=== PATIENT | female | born 1955 | race Caucasian/White ===

== ENCOUNTER 2017-07-16 14:12 | Emergency (ER) | payer BC, OTHER ==
[~2017-07-16] VITALS: Ht 170.2 cm; Wt 102.1 kg
[~2017-07-16 14:12] MED LIST: 5-Htp100 MG PO; ABAT250V; ALBU90OI6 INH; ATEN25; ATEN50; Adipex-P37.5 MG PO; CYCL10 PO; ESTR2; ESTR2 PO; FLUSAL1005 IH; GLIM2; GLIMEPIRIDE PO; GLYMET5 PO; GUAI120S1 PO; LEVA1.25 INH; LISI5 PO; LORA10ER PO; METF500; METF500 PO; METFORMIN PO; MONT10T PO; MULVITMINF; NAPR550 PO; OXYACE7.5T PO; PRED10 PO; PROC5 PO; Percocet 5-3251 EACH PO; Prednisone20 MG PO; Prednisone50 MG PO; QVAR7.3 G1 IH; SERT25; SERT50; THEO200ERA PO; THEO300ERA; THEO300ERB; ZALE10 PO; ZALE5; ZALE5 PO
[2017-07-16] MEDS ORDERED: INSDET100 SC (14:43)
[2017-07-16 14:44] LABS: BASOPHILS ABSOLUTE AUTO 0.04 K/mm3 (0.00-0.23); BASOPHILS PERCENT AUTO 1 % (0-2); EOSINOPHILS ABSOLUTE AUTO 0.17 K/mm3 (0.00-0.68); EOSINOPHILS PERCENT AUTO 3 % (0-6); Hematocrit 43.6 % (33.0-51.0); Hemoglobin 14.4 g/dL (11.5-16.0); IMMATURE GRAN ABSOLUTE AUTO 0.02 K/mm3 (0.00-0.10); IMMATURE GRAN PERCENT AUTO 0 % (0-1); LYMPHOCYTES ABSOLUTE AUTO 2.59 K/mm3 (0.84-5.20); LYMPHOCYTES PERCENT AUTO 39 % (21-46); MONOCYTES ABSOLUTE AUTO 0.33 K/mm3 (0.16-1.47); MONOCYTES PERCENT AUTO 5 % (4-13); Mean Corpuscular HGB 28.5 pg (26.0-34.0); Mean Corpuscular Volume 86 fL (80-100); Mean Platelet Volume 10.3 fL (9.1-12.4); NEUTROPHILS ABSOLUTE AUTO 3.56 K/mm3 (1.96-9.15); NEUTROPHILS PERCENT AUTO 53 % (41-73); Platelet Count 339 K/mm3 (150-400); RDW Coefficient Variation 11.9 % (11.7-14.2); RDW Standard Deviation 37.8 fL (35.1-46.3); Red Blood Cell Count 5.05 M/mm3 (3.80-5.20); White Blood Cell Count 6.71 K/mm3 (4.00-11.30)
[2017-07-16 15:07] LABS: Alanine Aminotransfer (ALT/SGP 38 U/L (12-78); Albumin, Blood 3.3 g/dL (3.4-5.0); Albumin/Globulin Ratio 0.7 (0.8-1.8); Alk Phos 112 U/L (50-136); Anion Gap 9 mmol/L (6-16); Aspartate Aminotrans (AST/SGOT 21 U/L (12-37); Bilirubin, Total 0.4 mg/dL (0.1-1.0); Blood Urea Nitrogen 12 mg/dL (8-24); CO2, Blood 24 mmol/L (21-32); Chloride, Blood 103 mmol/L (98-108); Creatinine, Blood 0.57 mg/dL (0.40-1.00); Globulin, Blood 4.5 g/dL (2.2-4.0); Glomerular Filtration Rate >60 (60-); Glucose, Blood 294 mg/dL (70-99); Potassium, Blood 4.3 mmol/L (3.5-5.5); Sodium, Blood 136 mmol/L (136-145); Total Protein, Blood 7.8 g/dL (6.4-8.2); Troponin I <0.015 ng/mL (0.000-0.040)
== END 2017-07-16 16:28 | disposition home or self-care (01) ==
LOC: ER 14:12
PROVIDERS: Internal Medicine
DX: S93.401A Sprain of unspecified ligament of right ankle, initial encounter (principal); J40 Bronchitis, not specified as acute or chronic; E11.9 Type 2 diabetes mellitus without complications; I10 Essential (primary) hypertension; Z88.0 Allergy status to penicillin; Z88.8 Allergy status to other drugs, medicaments and biological substances; Z79.899 Other long term (current) drug therapy; Z79.52 Long term (current) use of systemic steroids; Z79.4 Long term (current) use of insulin; W01.0XXA Fall on same level from slipping, tripping and stumbling without subsequent striking against object, initial encounter
CPT/HCPCS: 36415; 71046; 73590; 73610; 80053; 84484; 85025; 93005; 93010; 94640; 99284; J1817; J7030

== ENCOUNTER 2017-09-11 16:09 | Emergency (ER) | payer BC ==
[~2017-09-11] VITALS: Ht 170.2 cm; Wt 104.3 kg
[~2017-09-11 16:09] MED LIST changes: +INSDET100 SC
[2017-09-11 16:36] LABS: Source, Urine Clean Catch
[2017-09-11 16:38] LABS: BASOPHILS ABSOLUTE AUTO 0.05 K/mm3 (0.00-0.23); BASOPHILS PERCENT AUTO 1 % (0-2); EOSINOPHILS ABSOLUTE AUTO 0.15 K/mm3 (0.00-0.68); EOSINOPHILS PERCENT AUTO 2 % (0-6); Hematocrit 40.3 % (33.0-51.0); Hemoglobin 13.4 g/dL (11.5-16.0); IMMATURE GRAN ABSOLUTE AUTO 0.02 K/mm3 (0.00-0.10); IMMATURE GRAN PERCENT AUTO 0 % (0-1); LYMPHOCYTES ABSOLUTE AUTO 2.48 K/mm3 (0.84-5.20); LYMPHOCYTES PERCENT AUTO 41 % (21-46); MONOCYTES ABSOLUTE AUTO 0.33 K/mm3 (0.16-1.47); MONOCYTES PERCENT AUTO 5 % (4-13); Mean Corpuscular HGB 29.3 pg (26.0-34.0); Mean Corpuscular HGB Conc 33.3 g/dL (31.5-36.5); Mean Corpuscular Volume 88 fL (80-100); Mean Platelet Volume 10.7 fL (9.1-12.4); NEUTROPHILS PERCENT AUTO 51 % (41-73); Platelet Count 329 K/mm3 (150-400); RDW Coefficient Variation 12.1 % (11.7-14.2); RDW Standard Deviation 39.2 fL (35.1-46.3); Red Blood Cell Count 4.57 M/mm3 (3.80-5.20); White Blood Cell Count 6.13 K/mm3 (4.00-11.30)
[2017-09-11 16:41] LABS: Bilirubin, Urine Neg (Neg); Blood, Urine Neg (Neg); Glucose Qualitative, Urine 4+ (Neg); Ketones, Urine Neg (Neg); Leukocyte Esterase, Urine Neg (Neg); Nitrite, Urine Neg (Neg); Protein, Urine Neg (Neg); Specific Gravity, Urine 1.015 (1.003-1.022); Urobilinogen, Urine NORM (Normal)
[2017-09-11 16:48] LABS: Appearance, Urine Clear (Clear); Color, Urine Pale Yellow (P-Yellow)
[2017-09-11 17:10] LABS: Alanine Aminotransfer (ALT/SGP 11 U/L (12-78); Albumin, Blood 3.3 g/dL (3.4-5.0); Albumin/Globulin Ratio 0.9 (0.8-1.8); Alk Phos 94 U/L (50-136); Anion Gap 8 mmol/L (6-16); Aspartate Aminotrans (AST/SGOT 8 U/L (12-37); Bilirubin, Total 0.2 mg/dL (0.1-1.0); Blood Urea Nitrogen 11 mg/dL (8-24); CO2, Blood 26 mmol/L (21-32); Calcium, Blood 8.9 mg/dL (8.5-10.1); Chloride, Blood 101 mmol/L (98-108); Creatinine, Blood 0.69 mg/dL (0.40-1.00); Globulin, Blood 3.8 g/dL (2.2-4.0); Glomerular Filtration Rate >60 (60-); Glucose, Blood 551 mg/dL (70-99); Potassium, Blood 4.2 mmol/L (3.5-5.5); Sodium, Blood 135 mmol/L (136-145); Total Protein, Blood 7.1 g/dL (6.4-8.2)
[2017-09-11] MEDS ORDERED: 5-Htp50 MG PO (17:25)
[2017-09-11 18:24] LABS: Beta-hydroxybutyrate 1.1 mg/dL (0.2-2.8)
== END 2017-09-11 19:05 | disposition home or self-care (01) ==
LOC: ER 16:09
PROVIDERS: Emergency Medicine
DX: E11.65 Type 2 diabetes mellitus with hyperglycemia (principal); J45.909 Unspecified asthma, uncomplicated; I10 Essential (primary) hypertension; Z79.899 Other long term (current) drug therapy; Z79.4 Long term (current) use of insulin
CPT/HCPCS: 36415; 80053; 81003; 82010; 82947; 85025; 96360; 99283; J1815; J7030

== ENCOUNTER 2018-06-26 09:07 | Emergency (ER) | payer BC ==
[~2018-06-26] VITALS: Ht 170.2 cm; Wt 97.5 kg
[~2018-06-26 09:07] MED LIST changes: +5-Htp50 MG PO
[2018-06-26 10:35] LABS: BASOPHILS ABSOLUTE AUTO 0.04 K/mm3 (0.00-0.23); BASOPHILS PERCENT AUTO 0 % (0-2); EOSINOPHILS ABSOLUTE AUTO 0.05 K/mm3 (0.00-0.68); EOSINOPHILS PERCENT AUTO 0 % (0-6); Hematocrit 39.8 % (33.0-51.0); Hemoglobin 13.4 g/dL (11.5-16.0); IMMATURE GRAN ABSOLUTE AUTO 0.07 K/mm3 (0.00-0.10); IMMATURE GRAN PERCENT AUTO 0 % (0-1); LYMPHOCYTES ABSOLUTE AUTO 1.19 K/mm3 (0.84-5.20); LYMPHOCYTES PERCENT AUTO 7 % (21-46); MONOCYTES PERCENT AUTO 6 % (4-13); Mean Corpuscular HGB 28.9 pg (26.0-34.0); Mean Corpuscular HGB Conc 33.7 g/dL (31.5-36.5); Mean Corpuscular Volume 86 fL (80-100); Mean Platelet Volume 10.2 fL (9.1-12.4); NEUTROPHILS ABSOLUTE AUTO 13.95 K/mm3 (1.96-9.15); NEUTROPHILS PERCENT AUTO 86 % (41-73); Platelet Count 355 K/mm3 (150-400); RDW Coefficient Variation 12.3 % (11.7-14.2); RDW Standard Deviation 38.1 fL (35.1-46.3); Red Blood Cell Count 4.63 M/mm3 (3.80-5.20)
[2018-06-26] MEDS ORDERED: ACYC200 (10:38)
[2018-06-26] MEDS ORDERED: [UNRECOGNIZED DRUG - OTHER] PO (10:38)
[2018-06-26] MEDS ORDERED: COMBIVENT RESPIM4 GM INH (10:38)
[2018-06-26] MEDS ORDERED: LEVA.63IS INH (10:39)
[2018-06-26] MEDS ORDERED: (None)15 G1 EXT (10:39)
[2018-06-26] MEDS ORDERED: CHOL10002 (10:39)
[2018-06-26] MEDS ORDERED: ASPI81CH (10:40)
[2018-06-26 11:10] LABS: Alanine Aminotransfer (ALT/SGP 17 U/L (12-78); Albumin, Blood 3.3 g/dL (3.4-5.0); Albumin/Globulin Ratio 0.8 (0.8-1.8); Alk Phos 101 U/L (50-136); Anion Gap 10 mmol/L (6-16); Aspartate Aminotrans (AST/SGOT 8 U/L (12-37); Bilirubin, Total 0.3 mg/dL (0.1-1.0); Blood Urea Nitrogen 11 mg/dL (8-24); Bun/Creatinine Ratio 17.2 (12.0-20.0); CO2, Blood 24 mmol/L (21-32); Calcium, Blood 9.2 mg/dL (8.5-10.1); Chloride, Blood 104 mmol/L (98-108); Creatinine, Blood 0.64 mg/dL (0.40-1.00); Globulin, Blood 3.9 g/dL (2.2-4.0); Glomerular Filtration Rate >60 (60-); Glucose, Blood 246 mg/dL (70-99); Potassium, Blood 4.3 mmol/L (3.5-5.5); Sodium, Blood 138 mmol/L (136-145); Total Protein, Blood 7.2 g/dL (6.4-8.2)
[2018-06-26 12:06] LABS: Source, Urine Clean Catch
[2018-06-26 12:14] LABS: Bilirubin, Urine Neg (Neg); Blood, Urine Neg (Neg); Glucose Qualitative, Urine 2+ (Neg); Ketones, Urine Neg (Neg); Leukocyte Esterase, Urine 1+ (Neg); Nitrite, Urine Neg (Neg); Protein, Urine 1+ (Neg); Urobilinogen, Urine 1+ (Normal)
[2018-06-26 12:28] LABS: Appearance, Urine Clear (Clear); Bacteria Few /hpf; Color, Urine Yellow (P-Yellow); Mucus Light (0-Heavy); Red Blood Cells, Urine Not Seen /hpf (0-2); Squamous Epithelial Cells Few /hpf (Few); White Blood Cells, Urine 0-2 /hpf (0-5)
[2018-06-26] MEDS ORDERED: Norco 5-325 Ta1 EACH PO (13:06)
[2018-06-26] MEDS ORDERED: Macrobid 100 M100 MG PO (13:06)
== END 2018-06-26 13:36 | disposition home or self-care (01) ==
LOC: ER 09:07
PROVIDERS: Emergency Medicine
DX: R10.9 Unspecified abdominal pain (principal); E11.9 Type 2 diabetes mellitus without complications; J45.909 Unspecified asthma, uncomplicated; I10 Essential (primary) hypertension; Z88.0 Allergy status to penicillin; Z88.8 Allergy status to other drugs, medicaments and biological substances; Z79.4 Long term (current) use of insulin; Z79.899 Other long term (current) drug therapy; Z87.891 Personal history of nicotine dependence
CPT/HCPCS: 36415; 74177; 80053; 81001; 85025; 87086; 96361-59; 96374-59; 96375-59; 99284-25; J2405; J3010; J7030; Q9967

== ENCOUNTER 2020-01-18 08:35 | Day surgery (SDC) | payer BC, MEDICARE ==
[~2020-01-18 08:35] MED LIST changes: +(None)15 G1 EXT; +ACYC200; +ASPI81CH; +CHOL10002; +COMBIVENT RESPIM4 GM INH; +LEVA.63IS INH; +Macrobid 100 M100 MG PO; +Norco 5-325 Ta1 EACH PO; +[UNRECOGNIZED DRUG - OTHER] PO
--- NOTE | 2020-01-18 10:45 | NUR ---
DISCHARGE SUMMARY Patient up to Ambulate independently. Gait steady. Discharge instructions reviewed with patient. Patient verbalizes understanding. Copy given to patient to take home. IV DC'D. PT DECLINED WC OUT, DAUGHTER PICKING UP TO TAKE HOME.
== END 2020-01-18 22:38 | disposition home or self-care (01) ==
LOC: CT 08:35 → ORD 08:35 → CT 10:00 → ORD 22:38
DX: I25.10 Atherosclerotic heart disease of native coronary artery without angina pectoris (principal); R06.02 Shortness of breath; I10 Essential (primary) hypertension; E11.9 Type 2 diabetes mellitus without complications; E66.9 Obesity, unspecified; J45.909 Unspecified asthma, uncomplicated; Z88.0 Allergy status to penicillin; Z79.4 Long term (current) use of insulin; Z79.899 Other long term (current) drug therapy; Z87.891 Personal history of nicotine dependence
CPT/HCPCS: 75574; Q9967

== ENCOUNTER 2021-07-22 15:36 | Emergency (ER) | payer MEDICARE ==
[~2021-07-22] VITALS: Ht 170.2 cm; Wt 124.7 kg
[2021-07-22 16:14] LABS: BASOPHILS ABSOLUTE AUTO 0.05 K/mm3 (0.00-0.23); BASOPHILS PERCENT AUTO 0 % (0-2); EOSINOPHILS ABSOLUTE AUTO 0.02 K/mm3 (0.00-0.68); EOSINOPHILS PERCENT AUTO 0 % (0-6); Hematocrit 40.8 % (33.0-51.0); Hemoglobin 13.6 g/dL (11.5-16.0); IMMATURE GRAN ABSOLUTE AUTO 0.05 K/mm3 (0.00-0.10); IMMATURE GRAN PERCENT AUTO 0 % (0-1); LYMPHOCYTES ABSOLUTE AUTO 1.93 K/mm3 (0.84-5.20); LYMPHOCYTES PERCENT AUTO 14 % (21-46); MONOCYTES PERCENT AUTO 4 % (4-13); Mean Corpuscular HGB 28.1 pg (26.0-34.0); Mean Corpuscular HGB Conc 33.3 g/dL (31.5-36.5); Mean Corpuscular Volume 84 fL (80-100); Mean Platelet Volume 10.5 fL (9.1-12.4); NEUTROPHILS PERCENT AUTO 81 % (41-73); Platelet Count 410 K/mm3 (150-400); RDW Coefficient Variation 12.6 % (11.7-14.2); RDW Standard Deviation 38.5 fL (35.1-46.3); Red Blood Cell Count 4.84 M/mm3 (3.80-5.20); White Blood Cell Count 13.65 K/mm3 (4.00-11.30)
[2021-07-22 16:28] LABS: Alanine Aminotransfer (ALT/SGP 14 U/L (12-78); Albumin, Blood 3.5 g/dL (3.4-5.0); Albumin/Globulin Ratio 0.8 (0.8-1.8); Alk Phos 116 U/L (50-136); Anion Gap 8 mmol/L (6-16); Aspartate Aminotrans (AST/SGOT 8 U/L (12-37); Bilirubin, Total 0.5 mg/dL (0.1-1.0); Blood Urea Nitrogen 9 mg/dL (8-24); Bun/Creatinine Ratio 12.9 (12.0-20.0); CO2, Blood 24 mmol/L (21-32); Calcium, Blood 9.7 mg/dL (8.5-10.1); Chloride, Blood 103 mmol/L (98-108); Globulin, Blood 4.6 g/dL (2.2-4.0); Glomerular Filtration Rate >60 (60-); Glucose, Blood 206 mg/dL (70-99); Potassium, Blood 3.5 mmol/L (3.5-5.5); Sodium, Blood 135 mmol/L (136-145); Total Protein, Blood 8.1 g/dL (6.4-8.2)
[2021-07-22 17:29] LABS: Influenza A, PCR NEGATIVE (NEGATIVE); Influenza B, PCR NEGATIVE (NEGATIVE); Resp Syncytial Virus, PCR NEGATIVE (NEGATIVE); SARS-Cov-2 (COVID-19) PCR, MMC NEGATIVE (NEGATIVE)
== END 2021-07-22 20:12 | disposition home or self-care (01) ==
LOC: ER 15:36
PROVIDERS: Physician Assistant
DX: J05.0 Acute obstructive laryngitis [croup] (principal); E11.9 Type 2 diabetes mellitus without complications; J45.909 Unspecified asthma, uncomplicated; I10 Essential (primary) hypertension; Z20.822 Contact with and (suspected) exposure to COVID-19; Z87.891 Personal history of nicotine dependence; Z88.0 Allergy status to penicillin; Z88.8 Allergy status to other drugs, medicaments and biological substances; Z79.899 Other long term (current) drug therapy; Z79.4 Long term (current) use of insulin
CPT/HCPCS: 0241U; 36415; 71046; 80053; 84484; 85025; 93005; 93010; 99284-25; A9270; J1100

== ENCOUNTER → 2022-06-01 | Outpatient (CLI) | payer MEDICARE ==
[2022-06-01 18:24] LABS: Bun/Creatinine Ratio 18.6 (12.0-20.0); Calcium, Blood 9.5 mg/dL (8.5-10.1); Creatinine, Blood 0.97 mg/dL (0.40-1.00); Potassium, Blood 4.6 mmol/L (3.5-5.5)
== END | disposition home or self-care (01) ==
LOC: LAB 14:00 → LAB SHORT 14:00
PROVIDERS: Physician Assistant
DX: R94.4 Abnormal results of kidney function studies (principal)
CPT/HCPCS: 80048

== ENCOUNTER 2022-08-19 17:00 | Inpatient (IN) | payer MEDICARE ==
[~2022-08-19] VITALS: Ht 167.6 cm; Wt 98.5 kg
[~2022-08-19 17:00] MED LIST changes: -ASPI81CH; +ASPI81CH PO; -CHOL10002; +THERA-D2000 UNIT PO
[2022-08-19] MEDS ORDERED: FLOVENT HFA12 GM INH (17:09)
[2022-08-19] MEDS ORDERED: AMLO5 PO (17:09)
[2022-08-19] MEDS ORDERED: METFORMIN HCL500 M3 PO (17:09)
[2022-08-19] MEDS ORDERED: HYDCHL25 PO (17:10)
[2022-08-19] MEDS ORDERED: INSULIN GL100 UNIT/2 SC (17:10)
[2022-08-19] MEDS ORDERED: OMEP20ER PO (17:10)
[2022-08-19] MEDS ORDERED: OXYB5 PO (17:10)
[2022-08-19 17:41] LABS: BASOPHILS ABSOLUTE AUTO 0.04 K/mm3 (0.00-0.23); BASOPHILS PERCENT AUTO 0 % (0-2); EOSINOPHILS PERCENT AUTO 0 % (0-6); Hematocrit 35.1 % (33.0-51.0); Hemoglobin 11.7 g/dL (11.5-16.0); IMMATURE GRAN ABSOLUTE AUTO 0.07 K/mm3 (0.00-0.10); IMMATURE GRAN PERCENT AUTO 0 % (0-1); LYMPHOCYTES ABSOLUTE AUTO 1.24 K/mm3 (0.84-5.20); LYMPHOCYTES PERCENT AUTO 8 % (21-46); MONOCYTES ABSOLUTE AUTO 0.39 K/mm3 (0.16-1.47); MONOCYTES PERCENT AUTO 3 % (4-13); Mean Corpuscular HGB 28.8 pg (26.0-34.0); Mean Corpuscular HGB Conc 33.3 g/dL (31.5-36.5); Mean Corpuscular Volume 87 fL (80-100); Mean Platelet Volume 10.3 fL (9.1-12.4); NEUTROPHILS ABSOLUTE AUTO 14.16 K/mm3 (1.96-9.15); NEUTROPHILS PERCENT AUTO 89 % (41-73); Platelet Count 411 K/mm3 (150-400); RDW Coefficient Variation 12.6 % (11.7-14.2); RDW Standard Deviation 39.8 fL (35.1-46.3); Red Blood Cell Count 4.06 M/mm3 (3.80-5.20)
[2022-08-19 18:02] LABS: Albumin, Blood 3.3 g/dL (3.4-5.0); Albumin/Globulin Ratio 0.9 (0.8-1.8); Bilirubin, Total 0.3 mg/dL (0.1-1.0); Bun/Creatinine Ratio 25.7 (12.0-20.0); Calcium, Blood 8.4 mg/dL (8.5-10.1); Creatinine, Blood 1.01 mg/dL (0.40-1.00); Globulin, Blood 3.6 g/dL (2.2-4.0); Potassium, Blood 4.6 mmol/L (3.5-5.5); Total Protein, Blood 6.9 g/dL (6.4-8.2)
[2022-08-19 18:52] LABS: Source, Urine Straight Cath
[2022-08-19 18:56] LABS: Appearance, Urine Clear (Clear); Blood, Urine 1+ (Neg); Color, Urine Yellow (P-Yellow); Glucose Qualitative, Urine 2+ (Neg); Ketones, Urine 1+ (Neg); Leukocyte Esterase, Urine Neg (Neg); Nitrite, Urine Neg (Neg); Protein, Urine 2+ (Neg); Specific Gravity, Urine 1.025 (1.003-1.022); Urobilinogen, Urine NORM (Normal)
[2022-08-19 19:22] LABS: Bilirubin, Urine 2+ (Neg)
[2022-08-19 19:24] LABS: Bacteria Few /hpf; Mucus Light (0-Heavy); Squamous Epithelial Cells Few /hpf (Few); White Blood Cells, Urine 0-2 /hpf (0-5)
[2022-08-19 19:27] LABS: Influenza A, PCR NEGATIVE (NEGATIVE); Influenza B, PCR NEGATIVE (NEGATIVE); Resp Syncytial Virus, PCR NEGATIVE (NEGATIVE); SARS-Cov-2 (COVID-19) PCR, MMC NEGATIVE (NEGATIVE)
[2022-08-19 22:07] LABS: U Amphetamine Screen Not Detected; U Barbituate Screen Not Detected; U Benzodiazapine Screen Not Detected; U Buprenorphine Screen Not Detected; U Cannabinoids Screen Not Detected; U Cocaine Screen Not Detected; U Methadone Screen Not Detected; U Methamphetamine Screen Not Detected; U Opiates Screen Not Detected; U Oxycodone Screen Not Detected; U Phencyclidine Screen Not Detected; U Propoxyphene Screen Not Detected
[2022-08-19 23:01] VITALS: BP 159/76
[2022-08-19] MEDS ORDERED: ATOR10 PO (23:24)
[2022-08-19] MEDS ORDERED: 5-HTP100 MG (23:41)
[2022-08-20 04:44] VITALS: BP 158/69
[2022-08-20 05:20] LABS: BASOPHILS ABSOLUTE AUTO 0.06 K/mm3 (0.00-0.23); BASOPHILS PERCENT AUTO 1 % (0-2); EOSINOPHILS ABSOLUTE AUTO 0.23 K/mm3 (0.00-0.68); EOSINOPHILS PERCENT AUTO 2 % (0-6); Hematocrit 36.2 % (33.0-51.0); Hemoglobin 12.1 g/dL (11.5-16.0); IMMATURE GRAN ABSOLUTE AUTO 0.04 K/mm3 (0.00-0.10); IMMATURE GRAN PERCENT AUTO 0 % (0-1); LYMPHOCYTES ABSOLUTE AUTO 3.11 K/mm3 (0.84-5.20); LYMPHOCYTES PERCENT AUTO 27 % (21-46); MONOCYTES ABSOLUTE AUTO 0.63 K/mm3 (0.16-1.47); MONOCYTES PERCENT AUTO 5 % (4-13); Mean Corpuscular HGB 28.9 pg (26.0-34.0); Mean Corpuscular HGB Conc 33.4 g/dL (31.5-36.5); Mean Corpuscular Volume 86 fL (80-100); Mean Platelet Volume 10.6 fL (9.1-12.4); NEUTROPHILS PERCENT AUTO 65 % (41-73); Platelet Count 445 K/mm3 (150-400); RDW Coefficient Variation 12.6 % (11.7-14.2); RDW Standard Deviation 39.7 fL (35.1-46.3); Red Blood Cell Count 4.19 M/mm3 (3.80-5.20); White Blood Cell Count 11.57 K/mm3 (4.00-11.30)
--- NOTE | 2022-08-20 05:38 | NUR ---
SHIFT SUMMARY REPORT FROM [facility] - PT BROUGHT VIA [employer] - USED SLIDER SHEET TO MOVE TO BED - PT REPORTS INCREASED WEAKNESS AND UNABLE TO SLIDE SELF TO BED, NEURO CHECKS q4 NEGATIVE, 0300 PT REPORTED ITCHING - CALL TO DR. ARAIZA - NEW ORDER FOR BENADRY, PT ABLE TO USE BED CODY IN THE NIGHT- PT TURNS SELF, BED LOW POSITION, CALL LIGHT WITHIN REACH
[2022-08-20 05:52] LABS: Albumin, Blood 3.4 g/dL (3.4-5.0); Albumin/Globulin Ratio 0.8 (0.8-1.8); Bilirubin, Total 0.4 mg/dL (0.1-1.0); Bun/Creatinine Ratio 24.6 (12.0-20.0); Calcium, Blood 9.3 mg/dL (8.5-10.1); Creatinine, Blood 0.93 mg/dL (0.40-1.00); Globulin, Blood 4.1 g/dL (2.2-4.0); Magnesium, Blood 1.7 mg/dL (1.6-2.4); Potassium, Blood 3.6 mmol/L (3.5-5.5); Total Protein, Blood 7.5 g/dL (6.4-8.2)
[2022-08-20 17:01] VITALS: BP 165/77
--- NOTE | 2022-08-20 17:44 | NUR ---
SHIFT SUMMARY- PT A@O X4. R SIDE WEAKNESS NOTED AND NOTICED BY PT. PT AWARE OF LIMITATIONS. NO COMPLIANT OF PAIN THIS SHIFT. BM X1. ABLE TO TRANSFER SBAX1 WITH FFW/GAIT BELT TO BEDSIDE COMMODE. ON RA. TELE NSR. NEURO CHECK, ADEQUATE. PT TOLERATING DIET WELL. WILL CONTINUE TO MONITOR. CALL LIGHT IN REACH, BED ALARM ON, AND SIDE RAILS UP FOR SAFETY.
[2022-08-20 19:46] VITALS: BP 162/89
--- NOTE | 2022-08-20 22:41 | NUR ---
ON ASSESSMENT, PT DEMONSTRATED L. SIDE WEAKNESS. THIS WAS IN CONTRAST TO REPORT BY DAY SHIFT NURSE, PT, AND PHYSICIAN NOTE THAT PT WAS EXPERIENCING R. SIDED WEAKNESS. ON MY ASSESSMENT PT DEMONSTRATED NEAR NORMAL R. SIDE STRENGTH AND VERY WEAK STRENGTH ON L. SIDE. CALLED HOSPITALIST DR. HESS TO NOTIFY. ORDERED HEAD CT W/O CONTRAST STAT. PUT ORDER IN AND CALLED TO NOTIFY CT IMAGING. THEY VOICED THEY WOULD SEND SOMEONE UP TO COLLECT PT SHABBIR.
[2022-08-21 02:01] VITALS: BP 157/86
--- NOTE | 2022-08-21 04:01 | NUR ---
SHIFT MOSTLY UNREMARKABLE. PT HAD R. HIP PAIN EARLY IN SHIFT THAT IS WELL MANAGED ON CURRENT TYLENOL Q6 REGIMEN. ASSESSMENT REMARKABLE FOR L. SIDED WEAKNESS. THIS WAS IN CONTRAST TO PREVIOUS REPORTS OF RIGHT SIDED WEAKNESS. CT W/O CONTRAST PERFORMED FOR FURTHER EXAMINATION. SEE RELATED NOTE FOR DETAILS. SHIFT OTHERWISE UNREMARAKBLE. PT HAS BEEN AOX4, PLEASANT, COOPERATIVE WITH CARE. BED LOCKED IN LOWEST POSITION. CALL LIGHT LEFT WITHIN REACH.
[2022-08-21 04:43] LABS: BASOPHILS ABSOLUTE AUTO 0.06 K/mm3 (0.00-0.23); BASOPHILS PERCENT AUTO 1 % (0-2); EOSINOPHILS ABSOLUTE AUTO 0.36 K/mm3 (0.00-0.68); EOSINOPHILS PERCENT AUTO 4 % (0-6); Hemoglobin 11.6 g/dL (11.5-16.0); IMMATURE GRAN ABSOLUTE AUTO 0.02 K/mm3 (0.00-0.10); IMMATURE GRAN PERCENT AUTO 0 % (0-1); LYMPHOCYTES ABSOLUTE AUTO 3.14 K/mm3 (0.84-5.20); LYMPHOCYTES PERCENT AUTO 38 % (21-46); MONOCYTES ABSOLUTE AUTO 0.58 K/mm3 (0.16-1.47); MONOCYTES PERCENT AUTO 7 % (4-13); Mean Corpuscular HGB 28.7 pg (26.0-34.0); Mean Corpuscular HGB Conc 33.1 g/dL (31.5-36.5); Mean Corpuscular Volume 87 fL (80-100); Mean Platelet Volume 10.4 fL (9.1-12.4); NEUTROPHILS ABSOLUTE AUTO 4.17 K/mm3 (1.96-9.15); NEUTROPHILS PERCENT AUTO 50 % (41-73); Platelet Count 388 K/mm3 (150-400); RDW Coefficient Variation 12.4 % (11.7-14.2); RDW Standard Deviation 39.5 fL (35.1-46.3); Red Blood Cell Count 4.04 M/mm3 (3.80-5.20); White Blood Cell Count 8.33 K/mm3 (4.00-11.30)
[2022-08-21 04:59] LABS: Bun/Creatinine Ratio 19.7 (12.0-20.0); Calcium, Blood 9.4 mg/dL (8.5-10.1); Creatinine, Blood 0.92 mg/dL (0.40-1.00); Potassium, Blood 4.4 mmol/L (3.5-5.5)
[2022-08-21 07:52] VITALS: BP 155/82
[2022-08-21 15:23] VITALS: BP 154/87
--- NOTE | 2022-08-21 19:34 | NUR ---
SHIFT SUMMARY PT AWAKE DURING SHIFT REPORT. PT ADMITTED FOR STROKE WITH L SIDE WEAKNESS. PER REPORT, PT'S WEAKNESS CHANGED TO R SIDE DEFICITS FOR A TIME. THIS SHIFT, PT HAS CONSISTANTLY HAS L SIDE WEAKNESS WITH R EYE SLIGHTLY SLUGGISH RESPONSE. SPEECH WAS A LITTLE SLURRED AT TIMES, EARLY INTO SHIFT. DR TYLER IN TO SEE PT THIS AM AND DISCUSS PLAN OF CARE WITH PT AND DAUGHTER. PT/OT ORDERED. SPEECH EVAL MILENA'D AND REMAINS ORDERED. THIS EVENING PT"S SPEECH SEEMS TO BE A LITTLE CLEARER AND L ARM WORKING A LITTLE BETTER WELL. PT REPORTING THAT SHE WAS ABLE TO OPERATE HER CELL PHONE AND PLAY A GAME ON IT, WHICH SHE HAS NOT BEEN ABLE TO DO FOR A COUPLE OF DAYS. PT UP TO CHAIR FOR MEALS. UP TO BSC TO VOID. 1-2P ASSIST USING FWW AND GB FOR SAFETY. PT BECOMES WEAKER WHEN TIRED. NO C/O PAIN. DENIES FURTHER NEEDS. CALL LT IN REACH. BED ALARM ON FOR SAFETY.
[2022-08-21 19:39] VITALS: BP 157/84
--- NOTE | 2022-08-22 05:32 | NUR ---
SUMMARY: NO ACUTE EVENTS OVERNIGHT. PATIENT HAS A L FACIAL DROOP AND L SIDED WEAKNESS OVERNIGHT. SYMPTOMS DID NOT WORSEN NOR DID THEY IMPROVE OVERNIGHT. SLEEP STUDY CONDUCTED OVERNIGHT. Q4 NEURO EXAMS COMPLETED PER ORDERS. TELE IN PLACE NO EVENTS. DID NOTICE PATIENT WAS SNORING AND HAVING MINIMAL APNIC EPISODES WHEN ROUNDING WHILE SHE WAS SLEEPING DURING SLEEP STUDY. AOX4. VSS. PERMISSIVE HTN PER MD NOTE. PATIENT OCCASIONALLY SLOW TO RESPOND. 2X ASSIST TO COMMODE.
[2022-08-22 08:01] VITALS: BP 175/68
[2022-08-22 15:49] VITALS: BP 147/75
--- NOTE | 2022-08-22 17:15 | NUR ---
SHIFT SUMMARY PT RESTING QUIETLY AT START OF SHIFT, BUT AWAKE. PT ASSISTED UP TO CHAIR FOR MEALS AND TO BSC NEEDED TO VOID AND BM. PT'S L SIDE EXTREMITIES A LITTLE STRONGER THIS AM THAN LAST NIGHT. SPEECH CONTINUED TO IMPROVE A LITTLE MORE AGAIN TODAY. DR TYLER IN TO SEE PT THIS AM. MEDICATIONS ADJUSTED FURTHER; SEE CHART. PT'S FAMILY IN THIS AFTERNOON TO VISIT. PT'S DAUGHTER ABLE TO ENCOURAGE AND ASSIST PT WITH INCREASING MOBILITY. PLAN TO D/C TO SNF FOR REHAB, ONCE MEDICALLY STABLE. RESTING QUIELTY AT THIS TIME. DENIES FURTHER NEEDS. CALL LT IN REACH.
[2022-08-22 19:36] VITALS: BP 167/77
[2022-08-23 03:04] VITALS: BP 138/84
[2022-08-23 05:31] LABS: CHOL/HDL RATIO 2.1; Cholesterol 131 mg/dL (50-200); HDL Cholesterol 62 mg/dL (>39); LDL/HDL RATIO 0.7; Low Density Lipoprotein Chol 42 mg/dL (0-110); Triglycerides 135 mg/dL (30-160); Very Low Density Lipoprot Chol 27 mg/dL (6-32)
--- NOTE | 2022-08-23 05:51 | NUR ---
SUMMARY: NO ACUTE EVENTS OVERNIGHT. PATIENT HAS A L FACIAL DROOP AND L SIDED WEAKNESS OVERNIGHT. SYMPTOMS DID NOT WORSEN OVERNIGHT. Q4 NEURO EXAMS COMPLETED PER ORDERS. TELE IN PLACE NO EVENTS. AOX4. VSS. PATIENT OCCASIONALLY SLOW TO RESPOND/FOGGY. 2X ASSIST TO COMMODE.
[2022-08-23 07:31] VITALS: BP 133/83
[2022-08-23 10:37] VITALS: BP 154/68
--- NOTE | 2022-08-23 12:05 | NUR ---
Met with pt and her daughter who will be assisting pt with financial and medical affairs post CVA. Pt is alert and oriented. Advanced directive given and reviewed with them, arranged for [facility] to meet them at 1300 today at bedside. Pt has changed code status to DNR/DNI. Palliative Care to remain available.
[2022-08-23 15:39] VITALS: BP 156/70
--- NOTE | 2022-08-23 16:53 | NUR ---
PATIENT IS ALERT AND ORIENTED AND COOPERATIVE WITH CARE. PATIENT'S LEFT SIDE IS NOTICEABLY WEAKER THAN THE RIGHT. PATIENT IS UP TO THE RECLINER FOR ALL MEALS. SHE SAT UP IN THE RECLINER FROM BREAKFAST UNTIL AFTER LUNCH. PATIENT WORKED WITH ST, OT AND PT THIS SHIFT. FAMILY IS AT THE BEDSIDE. PATIENT USES THE BSC WITH 2PA. WILL CONTINUE TO MONITOR
[2022-08-23 19:28] VITALS: BP 163/84
[2022-08-24] VITALS (7 sets, daily range): BP systolic 132–174; BP diastolic 57–105
--- NOTE | 2022-08-24 06:13 | NUR ---
SUMMARY: NO ACUTE EVENTS OVERNIGHT. PATIENT HAS A STABLE L FACIAL DROOP AND L SIDED WEAKNESS OVERNIGHT WITH NO CHANGES. SYMPTOMS DID NOT WORSEN OVERNIGHT. Q4 NEURO EXAMS COMPLETED PER ORDERS. TELE IN PLACE NO EVENTS. AOX4. VSS. PATIENT OCCASIONALLY SLOW TO RESPOND/FOGGY WHEN SHE FIRST WAKES UP. 2X ASSIST TO COMMODE.
--- NOTE | 2022-08-24 16:32 | NUR ---
PATIENT IS ALERT AND ORIENTED AND COOPERATIVE WITH CARE. NO SIGNS OF WORSEING SYMPTOMS TODAY. PATIENT WORKED WITH PT AND OT THIS SHIFT. PLAN IS FOR DISCHARGE TO [facility] TOMORROW MORNING. PATIENT C/O CONSTIPATION, DR. TYLER ORDERED BOWEL CARE MEDS. PATIENT REPORTS FLATUS. WILL CONTINUE TO MONITOR
[2022-08-25 03:13] VITALS: BP 160/62
--- NOTE | 2022-08-25 04:14 | NUR ---
SHIFT SUMMARY ADMITTED FOR CVA. DNR CODE. PLAN IS FOR DC TO [facility] IN [place] THIS MORNING. SHE IS ON PLAVIX. SHE IS A&O X4, ON RA. ACHS CBG'S. SHE IS A 1 ASSIST TO BSC W/GB. SHE WOULD BE 2 ASSIST W/FWW & GB IF BRP. SHE IS ON METFORMIN. 40 UNITS OF GLARGINE GIVEN THIS SHIFT. ADA DIET. LEFT SIDE IS WEAKER THAN RIGHT.
[2022-08-25 07:33] VITALS: BP 145/77
[2022-08-25] MEDS ORDERED: Acetaminophen325 M1 PO (08:08)
[2022-08-25] MEDS ORDERED: ALBU90OI INH (08:09)
[2022-08-25] MEDS ORDERED: BISA10S PR (08:09)
[2022-08-25] MEDS ORDERED: CLOP75 PO (08:10)
[2022-08-25] MEDS ORDERED: DOCU100 PO (08:11)
[2022-08-25] MEDS ORDERED: ENOX40I SC (08:11)
[2022-08-25] MEDS ORDERED: SENN187 PO (08:12)
[2022-08-25] MEDS ORDERED: HUMALOG KW100 UNIT/1 SC (08:12)
--- NOTE | 2022-08-25 15:55 | NUR ---
PT DISCHARGED AT 0943, FAMILY TRANSPORT TO [facility]. CALLED REOPRT TO JILLIAN.
== END 2022-08-25 09:46 | DRG 65 ==
LOC: ER 17:00 → MEDS 17:02 → ER 17:02 → MEDS 17:02
PROVIDERS: Emergency Medicine; Internal Medicine; Student in an Organized Health Care Education/Training Program; ADMIT Student in an Organized Health Care Education/Training Program
DX: I63.9 Cerebral infarction, unspecified (principal); E87.1 Hypo-osmolality and hyponatremia; G43.409 Hemiplegic migraine, not intractable, without status migrainosus; J45.909 Unspecified asthma, uncomplicated; E11.9 Type 2 diabetes mellitus without complications; Z66 Do not resuscitate; D72.829 Elevated white blood cell count, unspecified; R32 Unspecified urinary incontinence; E66.9 Obesity, unspecified; E78.5 Hyperlipidemia, unspecified; I10 Essential (primary) hypertension; Z79.4 Long term (current) use of insulin; Z90.49 Acquired absence of other specified parts of digestive tract; Z90.710 Acquired absence of both cervix and uterus; Z98.890 Other specified postprocedural states; Z88.8 Allergy status to other drugs, medicaments and biological substances; Z88.0 Allergy status to penicillin; Z79.51 Long term (current) use of inhaled steroids; Z79.84 Long term (current) use of oral hypoglycemic drugs; Z87.891 Personal history of nicotine dependence; Z79.899 Other long term (current) drug therapy; Z79.82 Long term (current) use of aspirin; Z20.822 Contact with and (suspected) exposure to COVID-19; Z68.37 Body mass index [BMI] 37.0-37.9, adult; Z79.02 Long term (current) use of antithrombotics/antiplatelets
CPT/HCPCS: 0241U; 36415; 51701; 70450; 70551; 71045; 80048; 80053; 80061; 81001; 82947; 83605; 83735; 84443; 84484; 85025; 87040; 92526; 92610; 93005; 93010; 93306; 93880; 94760; 94762; 96372; 97110; 97112; 97116; 97162; 97166; 97530; 99285-25; A9270; G0378; J1200; J1650; J1815

== ENCOUNTER 2022-12-06 22:11 | Emergency (ER) | payer MEDICARE ==
[~2022-12-06] VITALS: Ht 170.2 cm; Wt 104.3 kg
[~2022-12-06 22:11] MED LIST changes: +5-HTP100 MG; +ALBU90OI INH; +AMLO5 PO; +ATOR10 PO; +Acetaminophen325 M1 PO; +BISA10S PR; +CLOP75 PO; +DOCU100 PO; +ENOX40I SC; +FLOVENT HFA12 GM INH; +HUMALOG KW100 UNIT/1 SC; +HYDCHL25 PO; +INSULIN GL100 UNIT/2 SC; +METFORMIN HCL500 M3 PO; +OMEP20ER PO; +OXYB5 PO; +SENN187 PO
[2022-12-06 22:19] VITALS: BP 154/67
[2022-12-06] MEDS ORDERED: BASAGLAR K100 UNIT/3 SC (22:54)
[2022-12-06] MEDS ORDERED: VALA500 (22:54)
[2022-12-06] MEDS ORDERED: Vitamin B-12100 MCG (22:55)
[2022-12-06] MEDS ORDERED: VITAMIN D31000 UNI1 (22:55)
[2022-12-06] MEDS ORDERED: MIRALAX1714 PO (22:55)
[2022-12-06] MEDS ORDERED: BENADRYL25 MG PO (23:19)
[2022-12-06] MEDS ORDERED: PRED20 PO (23:19)
[2022-12-06] MEDS ORDERED: FAMO20 PO (23:19)
== END 2022-12-06 23:27 | disposition home or self-care (01) ==
LOC: ER 22:11
DX: L50.9 Urticaria, unspecified (principal); I10 Essential (primary) hypertension; E11.9 Type 2 diabetes mellitus without complications; Z88.0 Allergy status to penicillin; Z88.8 Allergy status to other drugs, medicaments and biological substances; Z79.82 Long term (current) use of aspirin; Z79.4 Long term (current) use of insulin; Z79.899 Other long term (current) drug therapy; Z87.891 Personal history of nicotine dependence; Z86.73 Personal history of transient ischemic attack (TIA), and cerebral infarction without residual deficits
CPT/HCPCS: A9270; J7512

== ENCOUNTER 2023-02-24 15:17 | Inpatient (IN) | payer MEDICARE ==
[~2023-02-24] VITALS: Ht 170.2 cm; Wt 85.9 kg
[~2023-02-24 15:17] MED LIST changes: +BASAGLAR K100 UNIT/3 SC; +BENADRYL25 MG PO; +FAMO20 PO; +MIRALAX1714 PO; +PRED20 PO; +VALA500; +VITAMIN D31000 UNI1; +Vitamin B-12100 MCG
[2023-02-24 16:10] LABS: BASOPHILS ABSOLUTE AUTO 0.07 K/mm3 (0.00-0.23); BASOPHILS PERCENT AUTO 1 % (0-2); EOSINOPHILS ABSOLUTE AUTO 0.29 K/mm3 (0.00-0.68); EOSINOPHILS PERCENT AUTO 2 % (0-6); Hematocrit 40.8 % (33.0-51.0); Hemoglobin 13.8 g/dL (11.5-16.0); IMMATURE GRAN ABSOLUTE AUTO 0.04 K/mm3 (0.00-0.10); IMMATURE GRAN PERCENT AUTO 0 % (0-1); LYMPHOCYTES PERCENT AUTO 26 % (21-46); MONOCYTES ABSOLUTE AUTO 0.92 K/mm3 (0.16-1.47); MONOCYTES PERCENT AUTO 6 % (4-13); Mean Corpuscular HGB 29.1 pg (26.0-34.0); Mean Corpuscular HGB Conc 33.8 g/dL (31.5-36.5); Mean Corpuscular Volume 86 fL (80-100); Mean Platelet Volume 10.5 fL (9.1-12.4); NEUTROPHILS ABSOLUTE AUTO 10.05 K/mm3 (1.96-9.15); NEUTROPHILS PERCENT AUTO 65 % (41-73); Platelet Count 557 K/mm3 (150-400); RDW Coefficient Variation 12.8 % (11.7-14.2); RDW Standard Deviation 39.3 fL (35.1-46.3); Red Blood Cell Count 4.75 M/mm3 (3.80-5.20); White Blood Cell Count 15.37 K/mm3 (4.00-11.30)
[2023-02-24 16:32] LABS: Albumin/Globulin Ratio 0.9 (0.8-1.8); Bilirubin, Total 0.8 mg/dL (0.1-1.0); Bun/Creatinine Ratio 18.4 (12.0-20.0); Creatinine, Blood 2.82 mg/dL (0.40-1.00); Globulin, Blood 4.5 g/dL (2.2-4.0); Potassium, Blood 4.3 mmol/L (3.5-5.5); Total Protein, Blood 8.5 g/dL (6.4-8.2)
[2023-02-24 17:16] LABS: Magnesium, Blood 2.1 mg/dL (1.6-2.4)
[2023-02-24 18:39] LABS: Influenza A, PCR NEGATIVE (NEGATIVE); Influenza B, PCR NEGATIVE (NEGATIVE); Resp Syncytial Virus, PCR NEGATIVE (NEGATIVE); SARS-Cov-2 (COVID-19) PCR, MMC NEGATIVE (NEGATIVE)
[2023-02-24 22:15] VITALS: BP 118/91
--- NOTE | 2023-02-24 23:34 | NUR ---
PATIENT IS A NEW ADMIT FROM THE ED. AXOX 4 AND ONE ASSIST TRANSFER FROM [facility] TO BED. IV ACYCLOVIR INFUSING FROM THE ED. REPORTS BEING TX FOR SHINGLES SINCE LAST WEEK WITH 3-4 MORE TREATMENTS LEFT. SHINGLES NOTED GROIN FOLDS, PELVIC, AND LEFT BUTTOCK MIDLINE. ON ROOM AIR. DENIES CHEST PAIN, SOB, AND N/V. NG TUBE IN PLACE FROM ED AND STARTED ON LIS. NPO. DENIES PAIN BUT REPORTS ABDOMEN DISCOMFORT FEELING BETTER SINCE NG TUBE PLACED IN ED. DAUGHTER PRESENT ON ADMIT AND LEFT AFTER ASSESSMENT. 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 ORIENTED TO ROOM AND CALL LIGHT SYSTEM. NS INFUSING AT 125 mL/HR. WCTM.
[2023-02-25] VITALS (13 sets, daily range): BP systolic 125–166; BP diastolic 62–108
--- NOTE | 2023-02-25 04:24 | NUR ---
SHIFT SUMMARY PATIENT HAD NO ACUTE CHANGES. AXOX 3-4 FORGETFUL AND FRUSTRATED REPORTING SHE CANNOT ALWAY REMEMBER WHAT SHE WANTED TO DO OR HAS A HARD TIME DOING IT. HX CVA IN JULY 2022. PATIENT GOT OUT ON THE WRONG SIDE OF THE BED X TWO WITH NG TUBE BEING PULLED ALONG WITH PIV. ONE ASSIST TO BSC. NS INFUSING AT 125 mL/HR. PATIENT REMINDED TO GET OUT ON SIDE OF THE BED WITH IV PUMP AND NG SUCTION. NPO. CBG Q6 120. CEPACOL THROAT LOZENGER AND THROAT SPRAY ORDERED BY HOSPITALIST DR WEINBERG FOR NG TUBE THROAT IRRIATION. IV ATIVAN 1 MG GIVEN PER EMAR FOR ANXIETY. ICE PACK PROVIDE PER PATIENT REQUEST FOT SHINGLES PAIN RELIEF. PASSING FLATUS. CALL LIGHT IN REACH. BED IN LOWEST POSITION. WILL CONTINUE TO MONITOR UNTIL DAY SHIFT NURSE ASSUMES CARE.
--- NOTE | 2023-02-25 05:45 | NUR ---
PATIENT CONFUSED PULLED OUT HER NG TUBE, PIV, AND REMOVED HER GOWN. SHE KNOWS NAME, PLACE, AND HER DIAGNOSIS BUT REPORTS SHE IS AWARE OF INTERMITTENT CONFUSION AT THIS TIME. DIRECTOR SERVICE NOTIFIED AND WILL REPLACE PIV FIRST. BED ALARM ACTIVATED. WCTM.
[2023-02-25 05:50] LABS: BASOPHILS ABSOLUTE AUTO 0.07 K/mm3 (0.00-0.23); BASOPHILS PERCENT AUTO 1 % (0-2); EOSINOPHILS ABSOLUTE AUTO 0.33 K/mm3 (0.00-0.68); EOSINOPHILS PERCENT AUTO 2 % (0-6); Hematocrit 39.6 % (33.0-51.0); Hemoglobin 12.9 g/dL (11.5-16.0); IMMATURE GRAN ABSOLUTE AUTO 0.07 K/mm3 (0.00-0.10); IMMATURE GRAN PERCENT AUTO 1 % (0-1); LYMPHOCYTES ABSOLUTE AUTO 3.02 K/mm3 (0.84-5.20); LYMPHOCYTES PERCENT AUTO 20 % (21-46); MONOCYTES PERCENT AUTO 6 % (4-13); Mean Corpuscular HGB 28.4 pg (26.0-34.0); Mean Corpuscular HGB Conc 32.6 g/dL (31.5-36.5); Mean Corpuscular Volume 87 fL (80-100); Mean Platelet Volume 10.3 fL (9.1-12.4); NEUTROPHILS ABSOLUTE AUTO 10.48 K/mm3 (1.96-9.15); NEUTROPHILS PERCENT AUTO 70 % (41-73); Platelet Count 554 K/mm3 (150-400); RDW Coefficient Variation 12.9 % (11.7-14.2); RDW Standard Deviation 39.6 fL (35.1-46.3); Red Blood Cell Count 4.55 M/mm3 (3.80-5.20); White Blood Cell Count 14.87 K/mm3 (4.00-11.30)
[2023-02-25 05:54] LABS: Source, Urine Clean Catch
[2023-02-25 06:05] LABS: International Normalized Ratio 0.96; Prothrombin Time Results 10.1 Sec (9.7-11.5)
[2023-02-25 06:06] LABS: Appearance, Urine Hazy (Clear); Blood, Urine 1+ (Neg); Color, Urine Yellow (P-Yellow); Glucose Qualitative, Urine Neg (Neg); Ketones, Urine Neg (Neg); Leukocyte Esterase, Urine 1+ (Neg); Nitrite, Urine Neg (Neg); Protein, Urine 1+ (Neg); Specific Gravity, Urine 1.025 (1.003-1.022); Urobilinogen, Urine NORM (Normal)
[2023-02-25 06:14] LABS: Bilirubin, Urine 1+ (Neg)
[2023-02-25 06:15] LABS: Bacteria Mod /hpf; Mucus Light (0-Heavy); Red Blood Cells, Urine 0-2 /hpf (0-2); Squamous Epithelial Cells Many /hpf (Few); White Blood Cells, Urine 0-2 /hpf (0-5)
[2023-02-25 06:28] LABS: Albumin, Blood 3.8 g/dL (3.4-5.0); Bilirubin, Total 0.7 mg/dL (0.1-1.0); Bun/Creatinine Ratio 23.7 (12.0-20.0); Creatinine, Blood 2.19 mg/dL (0.40-1.00); Globulin, Blood 3.9 g/dL (2.2-4.0); Magnesium, Blood 2.2 mg/dL (1.6-2.4); Potassium, Blood 4.2 mmol/L (3.5-5.5); Total Protein, Blood 7.7 g/dL (6.4-8.2)
[2023-02-25] MEDS ORDERED: ONDA4ODT MM (08:38)
[2023-02-25] MEDS ORDERED: VALACYCLOVIR1000 MG PO (08:39)
[2023-02-25] MEDS ORDERED: CALCIUM CARBON500 M1 PO (08:40)
[2023-02-25] MEDS ORDERED: THERA-D2000 UNIT PO (08:40)
--- NOTE | 2023-02-25 13:56 | NUR ---
Patient alert & oriented, denies pain or discomfort. Surgeon assessed patient this am, plan to do ABD XR and repeat after drinking gastrografin. Pt vomited after drinking, then 3x this morning/afternoon. NPO all shift, CBG 190, 1u insulin given at 1200. Patient reporting weakness, SBA-pivot to BSC. Surgeon reviewed plan with patient and family. Patient left medical floor at 1340 for surgery.
--- NOTE | 2023-02-25 14:00 | NUR ---
IV SITE MERVIN DRESSING D&I AND FLUSHED WITH 10NS/PATENT.
--- NOTE | 2023-02-25 18:32 | NUR ---
Patient s/p lysis of adhesions. Midline incision, steristrip, CDI. Patient tired, reports moderate ABD pain. Vitals stable. MD order ok to have sips & chips. Patient swallow intact, no trouble with drinking, no nausea or vomiting. Large loose BM this evening, and small soft BM before surgery. Will continue plan of care.
[2023-02-26 04:20] VITALS: BP 147/66
--- NOTE | 2023-02-26 04:51 | NUR ---
SHIFT SUMMARY: PT IS ADMITTED FOR SMALL BOWEL OBSTRUCTION AND IS A DNR. IS ALERT AND ABOUT TO MAKE NEEDS KNOWN. ADL S WERE 2P MOD WHILE MOVING IN BED DID NOT GET OUT OF BED THIS SHIFT. IS CURRENTLY ON ISO FOR SHINGLES. HAD EXPLORATORY SURGERY TO ABD REPORTED FROM DAY SHIFT. INCISION NOTED TO LOWER ABD STARTING AT BASE OF NAVEL AND EXTENDING DOWN ABOUT 10CM. INCISION WAS CLOSED WITH SUTURES COVERED WITH A SINGLE STERI STIP THE LENGTH OF THE INCISION. NO DRAINAGE NOTED. NO SX OF INFECTION NOTED. PT STATED THAT THE AREA WAS A LITTLE TENDER BUT DECLINED ANY PAIN MANAGEMENT. POWER GLIDE TO UPPER RIGHT ARM IS PATENT WITH NO SX OF INFECTION. IV ABO INFUSED WITH OUT ISSUES
[2023-02-26] MEDS ORDERED: Acetaminophen650 M1 PO (05:05)
[2023-02-26] MEDS ORDERED: ALBU90OI INH (05:05)
[2023-02-26] MEDS ORDERED: BISA10S PR (05:06)
[2023-02-26] MEDS ORDERED: CLOP75 PO (05:06)
[2023-02-26] MEDS ORDERED: HUMALOG KW100 UNIT/1 SC (05:09)
[2023-02-26] MEDS ORDERED: SENNA LAXATIVE8.6 MG PO (05:10)
[2023-02-26] MEDS ORDERED: OXYB5 PO (05:10)
[2023-02-26] MEDS ORDERED: PRED20 PO (05:13)
[2023-02-26 07:04] LABS: BASOPHILS ABSOLUTE AUTO 0.06 K/mm3 (0.00-0.23); BASOPHILS PERCENT AUTO 0 % (0-2); EOSINOPHILS ABSOLUTE AUTO 0.19 K/mm3 (0.00-0.68); EOSINOPHILS PERCENT AUTO 1 % (0-6); Hematocrit 34.1 % (33.0-51.0); Hemoglobin 11.6 g/dL (11.5-16.0); IMMATURE GRAN ABSOLUTE AUTO 0.07 K/mm3 (0.00-0.10); IMMATURE GRAN PERCENT AUTO 0 % (0-1); LYMPHOCYTES PERCENT AUTO 13 % (21-46); MONOCYTES ABSOLUTE AUTO 1.16 K/mm3 (0.16-1.47); MONOCYTES PERCENT AUTO 6 % (4-13); Mean Corpuscular HGB 29.1 pg (26.0-34.0); Mean Corpuscular Volume 86 fL (80-100); Mean Platelet Volume 10.2 fL (9.1-12.4); NEUTROPHILS ABSOLUTE AUTO 14.65 K/mm3 (1.96-9.15); NEUTROPHILS PERCENT AUTO 79 % (41-73); Platelet Count 429 K/mm3 (150-400); RDW Coefficient Variation 12.8 % (11.7-14.2); RDW Standard Deviation 38.9 fL (35.1-46.3); Red Blood Cell Count 3.98 M/mm3 (3.80-5.20); White Blood Cell Count 18.63 K/mm3 (4.00-11.30)
[2023-02-26 07:30] LABS: Bun/Creatinine Ratio 35.5 (12.0-20.0); Calcium, Blood 9.5 mg/dL (8.5-10.1); Creatinine, Blood 1.41 mg/dL (0.40-1.00); Potassium, Blood 4.4 mmol/L (3.5-5.5)
[2023-02-26 07:44] VITALS: BP 137/65
[2023-02-26 16:06] VITALS: BP 142/68
--- NOTE | 2023-02-26 18:11 | NUR ---
SHIFT SUMMARY; PATIENT REMAINED IN BED MOST OF SHIFT. ONLY GETTING UP TO USE BATHROOM. SHE IS ASKED TO GET UP FOR HER EVENING MEAL HOWEVER SAYS NO SHE IS TOO TIRED TO GET OUT OF BED. MEDICATED FOR PAIN X 2 TODAY. HER SHINGLES ARE CRUSTED OVER AND NOT WEEPING. ROCIO IS ORIENTED X 3 MOST OF DAY. SHE HAS EPISODES WHERE SHE FORGETS SHE IS AT HOSPITAL AND THIINKS SHE IS HOME BUT REORIENTS QUICKLY. MEDICATED X 1 WITH INSULIN FOR ELEVATED BLOOD SUGAR. SURGICAL WOUND ON ABDOMEN CLEAN DRY AND INTACT.
[2023-02-26 19:44] VITALS: BP 128/53
[2023-02-27 05:08] VITALS: BP 133/66
--- NOTE | 2023-02-27 05:59 | NUR ---
SHIFT SUMMARY: PT IS ADMITTED FOR SMALL BOWEL OBSTRUCTION AND IS A DNR. IS ALERT AND ABLE TO MAKE NEEDS KNOWN. 1P MOD TO BEDSIDE COMMODE THROUGH THE SHIFT. ON CONTACT FOR SHINGLES. RASH IS IMPROVED FROM YESTERDAY WITH NO OPEN AREAS FOUND AND ONLY SCABS NOTED FROM LEFT GROIN TO LEFT FLANK. LR RUNNING AT 75/H IN RIGHT MIDLINE THROUGH SHIFT WITHOUT ISSUES.
[2023-02-27 07:34] LABS: Hematocrit 31.3 % (33.0-51.0); Hemoglobin 10.2 g/dL (11.5-16.0); Mean Corpuscular HGB 28.8 pg (26.0-34.0); Mean Corpuscular HGB Conc 32.6 g/dL (31.5-36.5); Mean Corpuscular Volume 88 fL (80-100); Platelet Count 337 K/mm3 (150-400); RDW Coefficient Variation 12.8 % (11.7-14.2); RDW Standard Deviation 40.4 fL (35.1-46.3); Red Blood Cell Count 3.54 M/mm3 (3.80-5.20); White Blood Cell Count 8.89 K/mm3 (4.00-11.30)
[2023-02-27 07:47] LABS: Albumin, Blood 2.8 g/dL (3.4-5.0); Anion Gap 5 mmol/L (6-16); Blood Urea Nitrogen 28 mg/dL (8-24); Bun/Creatinine Ratio 30.8 (12.0-20.0); CO2, Blood 25 mmol/L (21-32); Calcium, Blood 9.2 mg/dL (8.5-10.1); Chloride, Blood 109 mmol/L (98-108); Creatinine, Blood 0.91 mg/dL (0.40-1.00); Glomerular Filtration Rate 69 (60-); Glucose, Blood 130 mg/dL (70-99); Phosphorus, Blood 1.8 mg/dL (2.5-4.9); Sodium, Blood 139 mmol/L (136-145)
[2023-02-27 07:56] VITALS: BP 147/83
--- NOTE | 2023-02-27 13:22 | NUR ---
[address] DAI FOR MED CLARIFICATION. GAVE VERBAL OVER THE PHONE TO DC IV ACYCLOVIR-PT HAS COMPLETED MORE THAN 10 DAYS OF PRECRIBED TREATMENT. GAVE VERBAL OK TO DC OXYBUTININ-PT DOES NOT TAKE THIS MED. GAVE OK TO CHANGE LANTUS ORDER TO 23 UNITS OF LANTUS DAILY. PT'S MED REC WAS NOT UP TO DATE. MED REC COMPLETE NOW.
[2023-02-27 16:24] VITALS: BP 140/57
--- NOTE | 2023-02-27 18:37 | NUR ---
SUMMARY- PT AAOX4 THIS SHIFT, BUT FORGETFUL. SBA TO BATHROOM. PT HAD MULTIPLE LOOSE BOWEL MOVEMENTS THIS SHIFT. MINOR INCISION PAIN-TYLENOL GIVEN. PT TOLERATING A FULL LIQUID DIET FOR DINNER.
[2023-02-27 19:56] VITALS: BP 127/57
[2023-02-28 05:14] VITALS: BP 155/68
[2023-02-28 06:07] LABS: BASOPHILS ABSOLUTE AUTO 0.02 K/mm3 (0.00-0.23); BASOPHILS PERCENT AUTO 0 % (0-2); EOSINOPHILS ABSOLUTE AUTO 0.35 K/mm3 (0.00-0.68); EOSINOPHILS PERCENT AUTO 5 % (0-6); Hematocrit 31.2 % (33.0-51.0); Hemoglobin 10.5 g/dL (11.5-16.0); IMMATURE GRAN ABSOLUTE AUTO 0.01 K/mm3 (0.00-0.10); IMMATURE GRAN PERCENT AUTO 0 % (0-1); LYMPHOCYTES ABSOLUTE AUTO 1.74 K/mm3 (0.84-5.20); LYMPHOCYTES PERCENT AUTO 23 % (21-46); MONOCYTES ABSOLUTE AUTO 0.45 K/mm3 (0.16-1.47); MONOCYTES PERCENT AUTO 6 % (4-13); Mean Corpuscular HGB 29.4 pg (26.0-34.0); Mean Corpuscular HGB Conc 33.7 g/dL (31.5-36.5); Mean Corpuscular Volume 87 fL (80-100); Mean Platelet Volume 10.3 fL (9.1-12.4); NEUTROPHILS ABSOLUTE AUTO 5.05 K/mm3 (1.96-9.15); NEUTROPHILS PERCENT AUTO 66 % (41-73); Platelet Count 362 K/mm3 (150-400); RDW Coefficient Variation 12.6 % (11.7-14.2); RDW Standard Deviation 39.4 fL (35.1-46.3); Red Blood Cell Count 3.57 M/mm3 (3.80-5.20); White Blood Cell Count 7.62 K/mm3 (4.00-11.30)
--- NOTE | 2023-02-28 06:29 | NUR ---
SHIFT SUMMARY: PT IS ADMITTED FOR SMALL BOWEL OBSTRUCTION AND IS A DNR. HAS BEEN ALERT AND ABLE TO MAKE NEEDS KNOWN. HAS SURGERY A COUPLE DAYS AGO TO ABD WITH INCISION STARTING AT THE NAVEL. NO SX OF INFECTION NOTED. DENIES PAIN OR DISCOMFORT. ON ISO FOR SHINGLES. RASH AREA A LITTLE MORE INFLAMED THAN LAST NIGHT WITH 2 AREAS THAT WERE PREVIOUSLY SCABBED THAT ARE NOW OPEN. ADVANCED DIET TO ADA- REGULAR. POSSIBLE DC TODAY PER PT.
[2023-02-28 06:31] LABS: Anion Gap 5 mmol/L (6-16); Blood Urea Nitrogen 12 mg/dL (8-24); Bun/Creatinine Ratio 14.8 (12.0-20.0); CO2, Blood 26 mmol/L (21-32); Calcium, Blood 9.6 mg/dL (8.5-10.1); Chloride, Blood 109 mmol/L (98-108); Creatinine, Blood 0.81 mg/dL (0.40-1.00); Glomerular Filtration Rate 79 (60-); Glucose, Blood 169 mg/dL (70-99); Phosphorus, Blood 2.5 mg/dL (2.5-4.9); Potassium, Blood 4.3 mmol/L (3.5-5.5); Sodium, Blood 140 mmol/L (136-145)
[2023-02-28 07:01] VITALS: BP 151/69
[2023-02-28] MEDS ORDERED: GABA300 PO (13:00)
--- NOTE | 2023-02-28 15:27 | NUR ---
DISCHARGE. PT DISCHARGED HOME. DISCHARGED INSTRUCTIONS DISCUSSED WITH PT AND DAUGHTER. NO QUESTIONS OR CONCERNS AT THIS TIME. ALERT AND ORIENTED X4. SBA, R/A.
== END 2023-02-28 14:21 | disposition home or self-care (01) | DRG 336 ==
LOC: ER 15:17 → MEDS 21:04
PROVIDERS: Internal Medicine; Nurse Practitioner Acute Care; Student in an Organized Health Care Education/Training Program; Surgery; ADMIT Internal Medicine
PROC: 0DN80ZZ Release Small Intestine, Open Approach (ICD-10-PCS; principal; 2023-02-25 15:00)
DX: K56.50 Intestinal adhesions [bands], unspecified as to partial versus complete obstruction (principal); E87.1 Hypo-osmolality and hyponatremia; N17.9 Acute kidney failure, unspecified; E86.0 Dehydration; Z66 Do not resuscitate; E83.39 Other disorders of phosphorus metabolism; R82.71 Bacteriuria; Z11.52 Encounter for screening for COVID-19; B02.9 Zoster without complications; E11.9 Type 2 diabetes mellitus without complications; I10 Essential (primary) hypertension; J45.20 Mild intermittent asthma, uncomplicated; B96.1 Klebsiella pneumoniae [K. pneumoniae] as the cause of diseases classified elsewhere; I69.344 Monoplegia of lower limb following cerebral infarction affecting left non-dominant side; Z88.0 Allergy status to penicillin; Z88.8 Allergy status to other drugs, medicaments and biological substances; Z79.4 Long term (current) use of insulin; Z79.82 Long term (current) use of aspirin; Z79.52 Long term (current) use of systemic steroids; Z90.49 Acquired absence of other specified parts of digestive tract; Z87.891 Personal history of nicotine dependence; Z79.51 Long term (current) use of inhaled steroids
CPT/HCPCS: 0241U; 36415; 71045; 74177; 74250; 80048; 80053; 80069; 81001; 82947; 83605; 83690; 83735; 85025; 85027; 85610; 87077; 87086; 87186; 93005; 93010; 94762; 96361; 96365-59; 96366; 96375; 97110; 97116; 97162; 99285-25; A9270; C1751; C9113; J0133; J0330; J0690; J1100; J1650; J1815; J2060; J2371; J2405; J2704; J3010; J7030; J7060; J7120; Q9967

== ENCOUNTER → 2023-03-07 | Outpatient (CLI) | payer MEDICARE ==
[~2023-03-07] MED LIST changes: +Acetaminophen650 M1 PO; +CALCIUM CARBON500 M1 PO; +GABA300 PO; +ONDA4ODT MM; +SENNA LAXATIVE8.6 MG PO; +VALACYCLOVIR1000 MG PO
== END | disposition home or self-care (01) ==
LOC: LAB SHORT 09:15 → LAB 09:15
DX: R30.0 Dysuria (principal)
CPT/HCPCS: 87086